=== PATIENT | male | born 1995 | race Caucasian/White ===

== ENCOUNTER → 2016-10-23 | Outpatient (CLI) | payer BC, OTHER ==
[~2016-10-23] MED LIST: GADAVIST IV PRN
--- NOTE | 2016-10-23 11:24 | DIAGNOSTIC IMAGING REPORT ---
FLUOROSCOPICALLY GUIDED RIGHT SHOULDER ARTHROGRAM PRIOR TO MRI CLINICAL HISTORY: Right shoulder pain. COMPARISON STUDY: No previous studies for comparison. Fluoroscopy time: 17 seconds. PROCEDURE: 1 fluoroscopic image was obtained. The procedure, risks and benefits were discussed with the patient. The patient agreed to the procedure and informed written consent was obtained. The procedure was performed by Dr. Beckham following a timeout. Skin overlying the right glenohumeral joint was prepped and draped in sterile fashion and local anesthesia was achieved with 1% lidocaine. Under intermittent fluoroscopic guidance, a 2 and 1/2 inch 22-gauge needle was directed into the right glenohumeral joint. Positioning within the joint space was confirmed with injection of a small amount of contrast. At this time, 12 cc of a mixture of 0.05 cc of Gadavist, 10 cc of Optiray 300 cc of normal saline was injected into the joint. The needle was removed. The patient tolerated the procedure well and no immediate complications were evident. IMPRESSION: Fluoroscopically guided right shoulder arthrogram prior to MRI. Electronically signed by: Jer Beckham M.D. 10/23/2016 11:23 AM Dictated Date/Time: 10/23/2016 11:21 AM
--- NOTE | 2016-10-23 12:17 | DIAGNOSTIC IMAGING REPORT ---
MRI ARTHROGRAM OF THE RIGHT SHOULDER CLINICAL HISTORY: Right shoulder pain. Evaluate for labral tear. COMPARISON STUDY: No previous studies for comparison. TECHNIQUE: Following a fluoroscopically guided right shoulder arthrogram and utilizing a 1.5 Digna magnet, multiplanar, multiecho imaging of the right shoulder performed. FINDINGS: Alignment of the right shoulder is anatomic. Distention of the joint space by dilute gadolinium is excellent. There is an abnormal appearance of the inferior glenohumeral ligaments. This raises the possibility of a tear of the inferior glenohumeral ligaments. The long head of biceps tendon is intact. There is no evidence for fracture on this exam. There is subchondral abnormality with apparent impaction of the posterior superolateral aspect of the right humeral head which may reflect an old Hill-Sachs. The posterior inferior glenoid labrum is truncated and irregular. No definite Bankart is identified. A few suspected small joint bodies are present. There is no full-thickness rotator cuff tear. There is no tendon retraction or muscular atrophy. There is focal high-grade partial-thickness tear of distal supraspinatus. IMPRESSION: 1. Diminutive, irregular posterior inferior glenoid labrum suggestive of a complex labral tear. 2. High-grade partial-thickness tear of a portion of distal supraspinatus. No tendon retraction or muscular atrophy. 3. No significant chondrosis of the glenohumeral joint. 4. Irregular appearance of the inferior glenohumeral ligaments which raises the possibility of tear. 5. A few suspected small loose bodies. 6. Suspected Hill-Sachs deformity. Electronically signed by: Jer Beckham M.D. 10/23/2016 12:16 PM Dictated Date/Time: 10/23/2016 11:26 AM
== END | disposition home or self-care (01) ==
LOC: C.MRIBC 09:53
PROVIDERS: ATTEND Physical Medicine & Rehabilitation Sports Medicine
DX: M25.511 Pain in right shoulder (principal)

== ENCOUNTER → 2016-10-24 | Outpatient (CLI) | payer BC, OTHER | END | disposition home or self-care (01) | LOC: C.RDSM 14:00 | PROVIDERS: ATTEND Physical Medicine & Rehabilitation Sports Medicine | DX: M25.511 Pain in right shoulder (principal) ==